=== PATIENT | male | born 1990 | race Caucasian/White ===

== ENCOUNTER 2021-03-14 13:11 | Emergency (ER) | payer OTHER, SELFPAY ==
--- NOTE | ~2021-03-14 | CT_ITS ---
EXAMINATION: CT ABDOMEN AND PELVIS WITHOUT CONTRAST CLINICAL INFORMATION: Urinary retention COMPARISON: None TECHNIQUE: Multidetector volumetric imaging was performed from the superior aspect of the liver through the pubic symphysis. Sagittal and coronal reformatted images were obtained on the technologist's workstation. This CT examination was performed using dose optimization techniques as appropriate, variously including the following: *Automated exposure control *Adjustment of mA and/or kV according to patient size (this includes techniques or standardized protocols for targeted exams where dose is matched to indication/reason for exam; i.e. extremities or head) *Use of iterative reconstruction technique DLP: 381 mGy-cm FINDINGS: Evaluation of the abdomen and pelvis is somewhat limited due to lack of contrast and lack of intra-abdominal fat. Motion artifact is present. LUNG BASES: The visualized lung bases are unremarkable. No pleural or pericardial effusion. LIVER, GALLBLADDER, AND BILIARY TREE: The liver is normal in size, shape, and attenuation. No focal hepatic lesion or biliary ductal dilatation is present. The gallbladder is unremarkable with no evidence of radiopaque gallstones, gallbladder wall thickening, or obvious pericholecystic inflammatory changes. PANCREAS: Unremarkable. SPLEEN: Unremarkable. ADRENAL GLANDS: Unremarkable. KIDNEYS AND URETERS: The kidneys are normal in size, shape, and attenuation. No hydronephrosis, hydroureter, or obstructing calculi seen. No perinephric stranding. There are some fine medullary calcifications seen bilaterally. BLADDER: The urinary bladder is very distended measuring approximately 11.2 x 10.8 x 14.4 cm in size. No wall thickening or bladder calculi identified. GASTROINTESTINAL TRACT: There is small amount of free pelvic fluid present. No free air is appreciated. No dilated loops of large or small bowel. The appendix is visualized and appears unremarkable. There is some streaking within the mesenteric fat. ABDOMINAL WALL: No significant hernia is appreciated. LYMPH NODES: No definite lymphadenopathy is appreciated. VASCULAR: Unremarkable. PELVIC VISCERA: Small amount of free fluid present. OSSEOUS STRUCTURES: Unremarkable. CT/CT abdomen pelvis wo con IMPRESSION: Marked distention of the urinary bladder just described. No evidence of obstructive uropathy with some fine bilateral medullary calcifications being evident. Small amount of free fluid about the pelvis. Fleischner guidelines were followed.
[2021-03-14 13:19] VITALS: BP 122/70; PULSE 104; RESP 20; TEMP 36.9; O2SAT 100; BMI 21.2
--- NOTE | 2021-03-14 14:02 | ED_ITS ---
HPI - Male Genitourinary General Chief complaint: Urogenital-Male Stated complaint: BLADDER PAIN Time Seen by Provider: 03/14/21 13:31 Source: patient Mode of arrival: ambulatory Limitations: no limitations History of Present Illness HPI Narrative: This is a 31-year-old male with pmhx of opiate use disorder on suboxone presents to the emergency department with complaints of urinary retention, penile discharge, fevers and chills and abdominal pain. Patient tells me that he has been unable to void for 3 days, he tells me he has not even been able to have a small stream. Patient also reports that he was having white discharge coming out from his penis a few weeks ago. He reports subjective fevers and chills. He tells me that he was seen at [facility] yesterday where they gave him 1 pill, and they told him that he had a fever. He is unsure what his diagnosis was. He tells me that he thinks that he has an enlarged prostate. He also mentions that his girlfriend has been cheating on him, they both got STD tested yesterday and he thinks that they were both negative, however he is uncertain. He tells me that when he evacuates he feels as though he is not completely emptying. He denies rectal pain or itching. He denies testicular pain, pain to penis, chest pain, shortness of breath, nausea, vomiting, weakness, dizziness, vision changes. Patient tells me he was previously treated for gonorrhea and chlamydia years ago, but he tells me he has had no STDs recently. MD Complaint: penile discharge, dysuria, possible STD exposure and other (Urinary retention ) Onset (ago): day(s) (3) Duration: constant Location: abdomen (suprapubic region) Severity scale (1-10): >10 Relieving factors: none Exacerbating factors: none Context: other (Possible STD exposure. ) Associated symptoms: Reports discharge (white/yellow thick discharge. ), fever and other (urinary retention ) Related Data Sexually active: Yes Previous Rx's Medication Instructions Recorded ciprofloxacin HCl 500 mg tablet 500 mg PO BID 14 Days #28 tab 03/14/21 doxycycline hyclate 100 mg tablet 100 mg PO BID 10 Days #20 tab 03/14/21 metronidazole 500 mg tablet 500 mg PO BID 7 Days #14 tab 03/14/21 prednisone 20 mg tablet 40 mg PO DAILY 5 Days #10 tab 03/14/21 tamsulosin 0.4 mg capsule (Flomax) 0.4 mg PO DAILY #30 cap 03/14/21 Allergies Allergy/AdvReac Type Severity Reaction Status Date / Time Penicillins [PENICILLINS] Allergy Unknown UNKNOWN Unverified 12/06/19 17:15 tramadol [TRAMADOL] AdvReac Mild NAUSEA & Unverified 12/06/19 17:15 VOMITING Review of Systems Review of Systems: Constitutional : No Weight loss, + Fever, + Chills, No Fatigue, No Malaise ENT/Mouth : No sore throat, No Rhinorrhea Eyes: No Eye Pain, No Swelling, No Redness Cardiovascular : No Chest Pain, No SOB, No Dyspnea on Exertion, No Orthopnea, No Edema, No Palpitations Respiratory : No Cough, No Sputum, No Wheezing Gastrointestinal : No Nausea, No Vomiting, No Diarrhea, No Constipation, + abdominal Pain, No Hematochezia, No Melena Genitourinary : + Dysuria, No Urinary Frequency, No Hematuria, +penile discharge. Musculoskeletal : No joint pain, No Myalgias, No Joint Swelling Skin : No Skin Lesions, No rash Neuro : No Weakness, No Numbness, No Dizziness, No Headache Psych : No Anxiety/Panic, No Depression All other systems reviewed and are negative Yes all other systems are reviewed and are negative [facility] Past Medical History Attestation statement: The following information was validated with the patient. Source: old records reviewed and nursing notes reviewed Social History Social History Alcohol intake: current Alcohol intake frequency: holidays/special occasions only Patient Tobacco Use Status: Current everyday Tobacco user Use of substances other than those prescribed or required for medical reasons: Yes Substance Use Type: Crack/Cocaine Advance Directives: No Advance Directives Information Provided: No Physical Exam Vital Signs: Vital Signs: Last Vital Signs Temp 98.5 F 03/14/21 13:19 Pulse 72 03/14/21 14:45 Resp 16 03/14/21 14:45 BP 111/67 03/14/21 14:45 Pulse Ox 99 03/14/21 14:45 BMI result Body Mass Index 21.2 VSS, noted to be slightly tachycardic likely secondary to pain Appearance: Alert.? Oriented X3.? No acute distress.?+ patient appears uncomfortable. Head: Normocephalic, atraumatic, no step-offs or deformities Eyes: Pupils equal, round and reactive to light.? ENT: Pharynx normal.? Neck: Normal inspection.? Neck supple.? CVS: Normal heart rate and rhythm.? Pulses normal.? Respiratory: No respiratory distress.? Breath sounds normal.? Abdomen: Soft and +tenderness to suprapubic region, distended abdomen.? Skin: Skin warm and dry.? Normal skin color.? Normal skin turgor.? Sensitive exam: No tenderness with palpation of epididymis, or scrotum or shaft of penis. Did not palpate any hernias, lumps or masses. External examination within normal limits, normal male penis. Overlying skin free of erythema, rashes, lesions. Rectal exam significant for a boggy prostate. Firm tender prostate (physical geographer Mariah RN and Frances PCT) Extremities: 5/5 strength to bilateral upper and lower extremities Back: No midline tenderness, no C-spine tenderness, full range of motion, no CVA tenderness bilaterally Neuro: Oriented X 3.? No motor deficit.? No sensory deficit. Course Reevaluation(s) Reevaluation #1: I attempted to put in a 16 gauge regular patel catheter without success, meeting resistance upon entry. Patient uncomfortable. Ordered a Uro jet for patient comfort. At this time I will try to put a coude in. If this doesnt work will reach out to urology. Successfully put in an 18 gauge coude, no complications. Time: 15:21 Reevaluation #2: Urine significant for infection. Patient is afebrile, with no white blood count. Outpatient treatment for prostatitis appropriate. Patient reports significant improvement in terms of abdominal discomfort. CT scan shows marked distention of the urinary bladder as expected there is no evidence of obstructive uropathy, there is fine bilateral medullary calcifications. In the small amount of free fluid in the pelvis. I prophylactically treated patient for gonorrhea, give him Rocephin. I will discharge him home on doxycycline, metronidazole and ciprofloxacin for prostatitis, chlamydia and prophylactic Trichomonas. Patient will be sent home with a leg bag. I spoke to on-call urologist who agrees with the plan, and will see patient on an outpatient basis. I have advised patient to follow-up with him in 3-4 days. I have advised him to keep Patel area clean, and to not touch the Patel tubing as this can be a risk factor for infection. I have also educated him on signs of infection and have advised him to return with new or worsening symptoms. I have sent patient's prescriptions to [facility] on [facility] and I have personally handed him prescriptions as well to ensure that patient will fill these prescriptions and take them as prescribed. Patient is requesting to leave. Stable for DC. To note, patient tells me that [facility] sent him some presc riptions however he is unsure of what medications were sent to his pharmacy, he tells me he did pick anything up. For this reason I prescribed I feel is appropriate, and have handed patient scripts. Time: 16:05 MDM - Male Genitourinary MDM Narrative Medical decision making narrative: 1400 31 YO M pmhx opiate use d/o on suboxone presents to ED with complants of suprapubic abdominal pain/ distention, inability to void, subjective fevers/chills X3 days and hx of dysuria, urinary frequency and urgency and thick white/yellow penile discharge within the past week. Sexually active, his siginificant other was recently found to be cheating on him. He tells me him and his significant other got tested for STDs at [facility] yesterday and they came back negative. Tells me he has been told in the past his prostate was enlarged. Took doxycycline which he found at home for a few day . Feels as though there is incomplete evacuation of stool periodically. Mo hx of renal stones, hx of chlamydia and gonorrhea years ago which he got treated for an resolved. Upon physical examination patient appears uncomfortable lungs are clear, regular rate and rhythm, abdomen soft and tender to palpation in the suprapubic region, abdominal distension is also noted. Sensitive exam within normal limits. No focal neuro deficits. Vital signs are stable, he is noted to be tachycardic, likely secondary to pain/discomfort. Plan at this time is to obtain basic labs, bladder scan, CT of the abdomen and pelvis, put in a Patel cath, obtain a UA. Medicate patient for pain. I have spoken to the patient about prophylactically treating him for chlamydia, gonorrhea and Trichomonas. He agrees to getting prophylactic treatment. Have advised him to follow-up with his primary care provider or [facility] to obtain a full STD panel to evaluate for other STDs such as hepatitis C, syphilis and HIV. Medical Records Attestation: I reviewed the patient's medical records. Lab Data Attestation: I reviewed the patient's lab results. Result diagrams: 03/14/21 14:23 03/14/21 14:23 Labs: Lab Results 03/14/21 03/14/21 03/14/21 Range/Units 14:23 14:23 14:55 WBC 9.9 (4.8-10.8) X10*3/uL RBC 3.47 L (4.60-5.80) X10*6/uL Hgb 10.2 L (14.0-18.0) g/dl Hct 30.4 L (42.0-52.0) % MCV 87.6 (80.0-98.0) fL MCH 29.4 (27.0-33.0) pg MCHC 33.6 (31.0-36.0) g/dl RDW 11.8 (11.0-16.0) % Plt Count 236 (160-400) X10*3/uL MPV 9.3 L (9.4-12.4) fL Immature Gran % (Auto) 0.3 (0.0-0.4) % Neut % (Auto) 71.0 (45-73) % Lymph % (Auto) 19.6 L (20-40) % [place] % (Auto) 6.1 (2-11) % Eos % (Auto) 2.7 (0-4) % Baso % (Auto) 0.3 (0-2) % Lymph # (Auto) 1.9 (1.2-4.9) X10*3/uL [place] # (Auto) 0.6 (0.1-1.2) X10*3/uL Eos # (Auto) 0.3 (0.0-0.4) X10*3/uL Baso # (Auto) 0.0 (0.0-0.2) X10*3/uL Abs Immat Gran (auto) 0.03 (0.00-0.03) X10*3/uL Absolute Neuts (auto) 7.0 (2.0-8.3) x10*3/uL Absolute Nucleated RBC 0.000 (0.0-0.012) X10*3/uL Nucleated RBC % (auto) 0.0 (0.0-0.2) /100WBC Sodium 140 (135-145) mmol/L Potassium 3.9 (3.3-5.1) mmol/L Chloride 108 (96-108) mmol/L Carbon Dioxide 26 (22-29) mmol/L Anion Gap 10 L (12-20) BUN 12 (9-16) mg/dL Creatinine 0.68 (0.5-1.4) mg/dL Estim Creat Clear Calc 169.6 Estimated GFR > 60 Random Glucose 93 (60-115) mg/dL Calcium 8.7 (8.4-10.2) mg/dL Total Bilirubin < 0.2 (0.0-1.0) mg/dL AST 12 (5-37) U/L ALT 11 (0-40) U/L Alkaline Phosphatase 45 (39-117) U/L Total Protein 6.5 (6.5-8.0) g/dL Albumin 3.5 (3.5-5.0) g/dL Urine Color DK YELLOW Urine Appearance HAZY Urine pH 6.0 (5.0-8.0) Ur Specific [place] >= 1.030 H (1.005-1.025) Urine Protein 1+ H (NEG-TRACE) MG/DL Urine Glucose (UA) NEG (NEG) MG/DL Urine Ketones 5 (NEG) MG/DL Urine Blood 2+ H (NEG) Urine Nitrite POS H (NEG) Ur Leukocyte Esterase 1+ H (NEG) Urine RBC 1-4 (0) /HPF Urine WBC 15-29 H (0-4) /HPF Ur Squamous Epith Cells TRACE /LPF Urine Bacteria 1+ /LPF Imaging Data CT scan - abdomen: Attestation: I personally reviewed and interpreted this imaging study as follows: Radiologist's impression: CT/CT abdomen pelvis wo con IMPRESSION: Marked distention of the urinary bladder just described. ? No evidence of obstructive uropathy with some fine bilateral medullary calcifications being evident. ? Small amount of free fluid about the pelvis.? ? Fleischner guidelines were followed. Critical Care Time Critical Care Time Critical Care Time: Yes Total Critical Care Time: 45 Attestation: I attest to this time spent taking care of the patient, reviewing laboratory studies, obtaining history and physical exam, reviewing his paperwork from previous hospital, speaking to urology, Discharge Plan Discharge Clinical Impression: Prostatitis, Acute urinary retention Patient Disposition: Home, Self-Care Instructions: Prostatitis (ED), Enlarged Prostate (BPH) (ED), Patel Catheter Placement and Care (ED) Additional Instructions: Take your medications as prescribed. If you were prescribed antibiotics today, it is important that you take your medication to their entirety, do not skip any doses, do not finish them early. Ciprofloxacins black box warning (tendon rupture) was explained to you, you ex pressed understanding. If you have any pain return for evaluation. Some laboratory studies are still pending, you will get called only with positive results. Follow-up with your primary care provider this week. Follow up with urology in four days. Do not pull at the Patel catheter Return to the emergency department with new or worsening symptoms. Take ibuprofen every 6 hours and tylenol every 4 hours as needed for fevers/bodyaches. In case of emergency call 911 Prescriptions: New metronidazole 500 mg tablet 500 mg PO BID 7 Days Qty: 14 RF: 0 doxycycline hyclate 100 mg tablet 100 mg PO BID 10 Days Qty: 20 RF: 0 tamsulosin [Flomax] 0.4 mg capsule 0.4 mg PO DAILY Qty: 30 RF: 0 ciprofloxacin HCl 500 mg tablet 500 mg PO BID 14 Days Qty: 28 RF: 0 prednisone 20 mg tablet 40 mg PO DAILY 5 Days Qty: 10 RF: 0 Referrals: Isra Tamez III, MD [Physician] - 3 days Physician,Deshaun Reid [Primary Care Provider] - 2 days Stand Alone Forms: Work/School Release
[2021-03-14 14:27] LABS: MANUAL DIFF FLAG NO
[2021-03-14 14:28] LABS: Basophils Percent Auto 0.3 % (0-2); Eosinophils Absolute Auto 0.3 X10*3/uL (0.0-0.4); Eosinophils Percent Auto 2.7 % (0-4); Hematocrit 30.4 % (42.0-52.0); Hemoglobin 10.2 g/dl (14.0-18.0); Imm Gran Abs Auto 0.03 X10*3/uL (0.00-0.03); Imm Gran Pct Auto 0.3 % (0.0-0.4); Lymphocytes Absolute Auto 1.9 X10*3/uL (1.2-4.9); Lymphocytes Percent Auto 19.6 % (20-40); Mean Corpuscular HGB Conc 33.6 g/dl (31.0-36.0); Mean Corpuscular Hemoglobin 29.4 pg (27.0-33.0); Mean Corpuscular Volume 87.6 fL (80.0-98.0); Mean Platelet Volume 9.3 fL (9.4-12.4); Monocytes Absolute Auto 0.6 X10*3/uL (0.1-1.2); Monocytes Percent Auto 6.1 % (2-11); Platelet Count 236 X10*3/uL (160-400); Red Blood Count 3.47 X10*6/uL (4.60-5.80); Red Cell Distribution Width 11.8 % (11.0-16.0); White Blood Count 9.9 X10*3/uL (4.8-10.8)
[2021-03-14] MEDS: predniSONE 20 MG TABLET PO (14:38)
[2021-03-14] MEDS: Tamsulosin HCL 0.4 MG CAPSULE PO (14:38)
[2021-03-14] MEDS: Ketorolac Tromethamine 30 MG/ML VIAL IVPUSH (14:38)
[2021-03-14] MEDS: Lidocaine HCl 2 % Urojet 10 ML JEL.PF.APP TOPICAL ×2 (14:39)
[2021-03-14 14:45] VITALS: BP 111/67; PULSE 72; RESP 16; O2SAT 99
--- NOTE | 2021-03-14 14:48 | PC.NURSE ---
This RN present for rectal exam and cath insertion, tolerated well. VSS
[2021-03-14 14:51] LABS: Alanine Aminotransferase 11 U/L (0-40); Albumin Level 3.5 g/dL (3.5-5.0); Alkaline Phosphatase 45 U/L (39-117); Anion Gap 10 (12-20); Aspartate Amino Transferase 12 U/L (5-37); Bilirubin Total < 0.2 mg/dL (0.0-1.0); Blood Urea Nitrogen 12 mg/dL (9-16); Calcium 8.7 mg/dL (8.4-10.2); Carbon Dioxide 26 mmol/L (22-29); Chloride 108 mmol/L (96-108); Creatinine Clr Calc Pharmacy 169.6; Estimated Glomerular Filt Rate > 60; Glucose Random 93 mg/dL (60-115); Potassium 3.9 mmol/L (3.3-5.1); Sodium 140 mmol/L (135-145); Total Protein 6.5 g/dL (6.5-8.0)
[2021-03-14 15:05] LABS: Appearance Urine HAZY; Color Urine DK YELLOW; Glucose Urine UA NEG (NEG); Leukocyte Esterase Urine 1+ (NEG); Nitrite Urine POS (NEG); Specific Gravity - Urine >= 1.030 (1.005-1.025); UACC Culture Trigger YES; Urine Blood 2+ (NEG); Urine Ketones 5 MG/DL (NEG); Urine Protein 1+ MG/DL (NEG-TRACE)
--- NOTE | 2021-03-14 15:42 | PC.NURSE ---
RN FOUND PT TO BE VERY HARD TO AROUSE, NEEDING A STERNAL RUB. THIS HAPPENED 3 TIMES, IN SPEAKING W/PA & MD IT WAS SUGGESTED TO POTENTIALLY GIVE NARCAN. PT MAINTAINING O2 SATS AT THAT PARTICULAR TIME SO IN MY OPINION IT WAS NOT NEEDED THEN, AND IT WAS DECIDED TO BE HELD. PT CONTINUED TO BE VERY HARD TO AROUSE , REQUIRING STERNAL RUB, RN RAISING VOICE, SHAKING PT. PT BEGAN CALLING THIS RN CRISTINA MANN, YOU ARE FUCKING COOKED, I AM GETTING YOUR NAME AND GOING TO THE TOP WITH IT. FUCK YOU, FUCKING BITCH, STUPID FUCKING BITCH, RUDE FUCKING BITCH PT THREATENING TO RIP OUT IV, I AM GETTING THE FUCK OUT OF HERE YOU DUMB BITCH, MY ALREADY REPORTED YOU JOHNATHAN PA AT BEDSIDE, DISCUSSED W/PT RE: STAYING TO FINISH WORK UP
[2021-03-14 15:47] LABS: Bacteria Urine 1+ /LPF; Squamous Epithelial Cell Urine TRACE /LPF; UACC CULT YES
[2021-03-14] MEDS: cefTRIAXone sodium 500 MG, Lidocaine HCl 1 % MPF 1 ML IM (15:56)
--- NOTE | 2021-03-14 15:56 | PC.NURSE ---
RN AT BEDSIDE TO MEDICATE. PT STATES I DON'T WANT YOU FUCKING NEAR ME, GET SOMEONE ELSE, I DON'T KNOW WHY THE FUCK YOU KEEP COMING IN HERE, YOU MUST BE FUCKING STUPID ASIF RN AT PTS BEDSIDE AT THIS TIME MEDICATING PER EMAR
--- NOTE | 2021-03-14 16:16 | PC.NURSE ---
PA AT BEDSIDE DISCUSSING D/C INSTRUCTIONS W/PT. PCT CHICO TO BEDSIDE TO REMOVE IV, AND PLACE LEG BAG ON PATIENT. RN ASIF WILL BE AT PATIENTS BEDSIDE TO GIVE PAPERWORK & HAVE PT SIGN IN ORDER TO RESPECT PTS WISH OF NOT INTERACTING W/THIS RN
--- NOTE | 2021-03-14 16:54 | PC.NURSE ---
RN CALLED BACK TO ROOM BY PATIENT TO SPEAK W/ WHO IMMEDIATELY BEGAN YELLING, SWEARING YOU ARE ACTING LIKE A FUCKING BITCH, I SPOKE TO YOUR CLINICAL DATA MANAGER WHO SAID YOU WERE COMPLETELY WRONG WHEN YOU TOLD MY TO HANG UP THE PHONE IN TRIAGE THE PATIENTS S.O. ALSO STATED THAT THIS RN WOULD BE REPRIMANDED AND WHAT I HAD TOLD THE PATIENT RN THE PHONE IN TRIAGE WAS UNTRUE AND INCORRECT. THE PTS CONTINUED TO BERATE THIS RN SAYING THAT I GAVE HER SHITTY CARE AND THIS WAS GOING TO BE REPORTED HIGH IT COULD GO THIS RN DID PROVIDE PT W/FIRST NAME LAST INITIAL
[2021-03-15 00:59] LABS: CT PCR NOT DETECTED (Not Detect.); NG PCR DETECTED (Not Detect.)
== END 2021-03-14 17:05 | disposition home or self-care (01) ==
LOC: HO.ED 14:08
PROVIDERS: Physician Assistant; Emergency Provider Emergency Medicine Emergency Medical Services
DX: N41.9 Inflammatory disease of prostate, unspecified (principal); R33.9 Retention of urine, unspecified; F11.20 Opioid dependence, uncomplicated; Z20.2 Contact with and (suspected) exposure to infections with a predominantly sexual mode of transmission
CPT/HCPCS: 36415; 51703; 51798; 74176; 80053; 81001; 85025; 87086; 87491; 87591; 96372; 96374; 99285; 99291; J0696; J1885